=== PATIENT | female | born 1990 | race Caucasian/White ===

== ENCOUNTER 2018-04-06 13:09 | Emergency (ER) | payer MEDICAID, SELFPAY ==
--- NOTE | 2018-04-06 12:05 | EKG12_ITS ---
Test Reason : OPIOID ABUSE CP Blood Pressure : / mmHG Vent. Rate : 079 BPM Atrial Rate : 079 BPM P-R Int : 136 ms QRS Dur : 082 ms QT Int : 384 ms P-R-T Axes : 055 089 066 degrees QTc Int : 440 ms Normal sinus rhythm with sinus arrhythmia Nonspecific ST abnormality Abnormal ECG Confirmed by PREETI CHOE, VIMAL ([id number]), continuity editor BLAKE GUIDRY ([id number]) on 04/20/2018 11:26:27 AM Referred By: Magali Gage Confirmed By:VIMAL ÁLVAREZ MD
--- NOTE | 2018-04-06 13:09 | DT_ITS ---
This patient was seen during an EMR downtime April 03, 2018 - April 10, 2018. This patient may have a combination of paper and electronic documentation or all paper documentation. All documentation is viewable within the e-chart portion of [facility] for each patient visit.
--- NOTE | 2018-04-06 15:45 | RAD_ITS ---
STUDY: X-RAY CHEST REASON FOR EXAM: Female, 28 years old. Chest pain TECHNIQUE: Single AP portable view of the chest. COMPARISON: None. FINDINGS: Cardiac monitoring leads overlie the chest. The lungs are clear and expanded. There is no demonstrated pleural abnormality. Normal size heart. Normal mediastinum and adi. Normal visualized pulmonary arteries. Normal visualized aortic arch and descending thoracic aorta. Normal visualized thoracic spine. Normal visualized ribs, clavicles, and shoulders. There is no demonstrated abnormality of the visualized soft tissue structures of the upper abdomen. RAD/Chest 1 View (Portable) IMPRESSION: Normal x-ray examination of the chest. Please note that this study was performed on 04/06/2018, but only now placed in my queue for interpretation, explaining the delay in reporting. Electronically Signed: Yaniv Eller DO at 11:34 EDT Tel , Service support ,
[2018-04-09 13:45] LABS: Basophil% 0.6 % (0-1); Eosinophils% 3.2 % (0-5); Hematocrit 40.4 % (37-47); Hemoglobin 13.8 g/dl (12.0-15.0); Lymphocyte % 31.7 % (19-41); Mean Corp Hgb Conc 34.2 g/gl (32-36); Mean Corpuscular Volume 93.7 fL (81-99); Mean Platelet Vol. 10.6 fl (6.2-12.0); Monocyte% 6.9 % (0-10); Neutrophil % 57.6 % (47-70); POSITIVE COUNT NO; POSITIVE DIFFERENTIAL NO; POSITIVE MORPHOLOGY NO; Platelet Count 202 K/mm3 (150-450); RBC Distribution Width CV 12.6 % (11.6-14.6); RBC Distribution Width SD 43.5 fl (35.1-43.9); Red Blood Count 4.31 M/mm3 (4.2-5.4); White Blood Count 7.1 K/mm3 (4.4-11.0)
[2018-04-09 13:46] LABS: Absolute Lymphocyte Count 2.25 X10^3/ul (0.83-4.51); Absolute Neutrophil Count 4.1 X10^3/uL (2.0-7.7); Basophil# 0.04 X10^3/uL; Eosinophil# 0.23 X10^3/uL; Lymphocyte # 2.25 X10^3/ul (4.0); Monocyte# 0.49 X10^3/uL; Neutrophil # 4.09 X10^3/uL (2.7-7.7)
[2018-04-09 16:26] LABS: BUN 13 mg/dL (7-18); Glucose 88 mg/dL (74-106)
[2018-04-09 16:27] LABS: Anion Gap 9 (5-15); BUN/Creat Ratio 17.3 RATIO (10-20); Calcium,Total 8.3 mg/dL (8.5-10.1); Chloride 105 mmol/L (98-107); Creatinine, Serum 0.75 mg/dL (0.55-1.02); EST Glomerular Filtration Rate 97 mL/min (>60); Est Glom Filt Rate - Afr Amer 118 mL/min (>60); Sodium Level 140 mmol/L (136-145)
== END 2018-04-06 16:35 | disposition home or self-care (01) ==
LOC: ED 04-07 09:13
PROVIDERS: Emergency Provider Emergency Medicine; Family Provider Nurse Practitioner Family; PCP Nurse Practitioner Family
DX: R07.9 Chest pain, unspecified (principal)
CPT/HCPCS: 71045; 80048; 84484; 85025; 93005; 99283; A4216

== ENCOUNTER → 2018-04-06 14:34 | Outpatient (CLI) | payer MEDICAID, SELFPAY ==
--- NOTE | 2018-04-06 11:06 | EKG12_ITS ---
Test Reason : CP Blood Pressure : / mmHG Vent. Rate : 071 BPM Atrial Rate : 071 BPM P-R Int : 152 ms QRS Dur : 098 ms QT Int : 418 ms P-R-T Axes : 050 088 059 degrees QTc Int : 454 ms Normal sinus rhythm Normal ECG Confirmed by MADISON LAO MD ([id number]), mapping editor BLAKE GUIDRY ([id number]) on 04/12/2018 5:28:33 PM Referred By: Lisa DAVIDSON Confirmed By:MADISON LAO MD
--- NOTE | 2018-04-06 14:34 | DT_ITS ---
This patient was seen during an EMR downtime April 03, 2018 - April 10, 2018. This patient may have a combination of paper and electronic documentation or all paper documentation. All documentation is viewable within the e-chart portion of [facility] for each patient visit.
== END ==
PROVIDERS: Family Provider Nurse Practitioner Family; PCP Nurse Practitioner Family; Visit Provider Nurse Practitioner Family
DX: F11.19 Opioid abuse with unspecified opioid-induced disorder (principal)
CPT/HCPCS: 93005

== ENCOUNTER → 2018-05-24 13:50 | Outpatient (CLI) | payer MEDICAID, SELFPAY ==
--- NOTE | 2018-05-24 14:01 | ECHOD_ITS ---
Reason For Study: ABN EKG Procedure This was a 2D Doppler, Color Flow transthoracic echocardiogram. Exam performed in department. Left Ventricle Normal size and thickness. The estimated ejection fraction is 65 %. Stage 1 diastolic dysfunction. No regional wall motion abnormalities noted. Right Ventricle Normal size and thickness. Normal systolic function. Atria Normal left atrium. Normal right atrium. Normal atrial septum. Mitral Valve The mitral valve is structurally normal. No prolapse or stenosis seen. Trivial mitral valve insufficiency. Tricuspid Valve Normal tricuspid valve. Unable to estimate RV systolic pressure due to inadequate jet, pulmonary artery pressure probably normal. Aortic Valve Normal aortic valve. Trisinus/trileaflet aortic valve. Pulmonic Valve Normal pulmonic valve. Trivial pulmonic valve insufficiency. Great Vessels Normal aortic root. Normal arch. Normal inferior vena cava. Inferior vena cava collapse with sniff. Pericardium/Pleural No pericardial effusion. MMode/2D Measurements & Calculations LVIDd: 4.9 cm IVSd: 0.95 cm Ao root diam: 2.9 cm LVIDs: 3.1 cm LVPWd: 0.90 cm RVDd: 4.0 cm FS: 35.6 % LAV(MOD-bp): 52.0 ml LA A4 area: 17.5 cm2 RA A4 area: 12.6 cm2 LAV(MOD-bp) Indexed: 28.9 ml/m2 LAV(MOD-sp2): 53.6 ml LAV(MOD-sp4): 47.2 ml Time Measurements MV dec time: 0.26 sec Doppler Measurements & Calculations MV E max nikolas: 74.2 cm/sec Lat Peak E' Nikolas: 15.7 cm/sec Med Peak E' Nikolas: 12.8 cm/sec MV A max nikolas: 42.4 cm/sec E/E' lat: 4.7 E/E' med: 5.8 MV E/A: 1.7 Ao V2 max: 98.5 cm/sec LV V1 max: 86.0 cm/sec PA V2 max: 84.5 cm/sec Ao max P.9 mmHg LV V1 max P.0 mmHg TR max nikolas: 182.1 cm/sec TR max P.3 mmHg Interpretation Summary The estimated ejection fraction is 65 %. Stage 1 diastolic dysfunction. Trivial mitral valve insufficiency. Unable to estimate RV systolic pressure due to inadequate jet, pulmonary artery pressure probably normal. There is no comparison study available. Ordering Physician: KIRAN PENA Referring Physician: ARUNA WHITE Performed By: Machelle Kan RDCS, RVT
== END ==
PROVIDERS: Family Provider Nurse Practitioner Family; PCP Internal Medicine
DX: R94.31 Abnormal electrocardiogram [ECG] [EKG] (principal)
CPT/HCPCS: 93306

== ENCOUNTER → 2018-06-07 11:09 | Outpatient (CLI) | payer MEDICAID, SELFPAY ==
[2018-06-07 11:46] LABS: Color, Urine Yellow (Yellow); Glucose, Dipstick Normal (Normal); Ketone-Dipstick Negative (Negative); Leukocyte Esterase-Dipstick 100 /ul (Negative); Nitrite-Dipstick Negative (Negative); Occult Blood-Urine 10 /ul (Negative); Protein-Dipstick Negative (Negative); Urine Bilirubin Dipstick Negative (Negative); Urine Clarity Sl. Cloudy (Clear); Urine Urobilinogen Normal (Normal)
[2018-06-07 11:53] LABS: Bacteria 1+ /hpf (None Seen); Mucous, Urine RARE /hpf (<or=2+); Red Blood Cells-Urine 0-5 SEEN /hpf (0-5); Squamous Epithelial Cells - UA 0-5 SEEN /hpf (5-10); White Blood Cells 10-25 SEEN /hpf (0-5)
== END ==
PROVIDERS: Family Provider Nurse Practitioner Family; PCP Nurse Practitioner Family; Visit Provider Nurse Practitioner Family
DX: R30.0 Dysuria (principal)
CPT/HCPCS: 81001; 87086; 87088

== ENCOUNTER → 2018-06-20 12:07 | Outpatient (CLI) | payer MEDICAID, SELFPAY ==
[2018-06-21 11:32] LABS: HEPATITIS B SURFACE AG Negative (Negative)
[2018-06-21 14:01] LABS: HIV - WCH Non-Reactive (Nonreactive)
== END ==
PROVIDERS: Family Provider Nurse Practitioner Family; PCP Nurse Practitioner Family; Visit Provider Internal Medicine
DX: Z20.6 Contact with and (suspected) exposure to human immunodeficiency virus [HIV] (principal)
CPT/HCPCS: 36415; 86703; 87340

== ENCOUNTER 2021-01-21 19:36 | Inpatient (IN) | payer MEDICAID, SELFPAY ==
[2021-01-21 19:36] VITALS: BP 127/83; PULSE 103; RESP 16; TEMP 35.4; O2SAT 99; BMI 20.5
--- NOTE | 2021-01-21 20:43 | ED.VISSUMM ---
- ER Visit Summary Date of Service: 01/21/21 Chief Complaint: [Request for detox from heroin and fentanyl] History of Present Illness: The patient is a 30 F [presents to the emergency department asking to be admitted for detox. Patient states that she last used heroin around 5 PM. Patient's been using daily heroin and opiates and essentially other drugs including methamphetamines and marijuana for the last year and a half. Patient states that she feels restless and nauseated and has been vomiting. She denies recent illness. She denies cough or Covid symptoms. Patient has no medical history.] Physical Examination: [HEENT-PERRLA, EOMI. Cranial nerves II through XII grossly intact. TMs clear. Mucous membranes moist. No adenopathy. Cardiovascular-regular rate and rhythm without murmur or ectopy Lungs-clear to auscultation, chest wall stable without crepitus or subcu emphysema Abdomen-normoactive bowel sounds, soft, nontender, no rebound or rigidity, no peritoneal signs. Extremities-intact ?4, normal range of motion, normal pulses, atraumatic] Test Results: [CBC with differential was normal. test was negative. LFTs pending. Tox screen and alcohol pending.] Emergency Department Course and Treatment: [The line was established. Patient was given normal saline and was given Zofran 4 mg IV.] Treatment Plan: [Patient will be admitted for further management of her withdrawal symptoms.] Disposition: [Admit] Impression: [Opiate withdrawal Requesting detox from opiates] This note was generated with [employer] dictation software. It may contain incorrect words, spelling, and punctuation that were not noted in review of the chart prior to signing ED Disposition - Plan for ED Patient: Referrals: Jose Francisco Reyes NP, [facility]-C [Primary Care Provider] -
[2021-01-21 21:00] VITALS: BP 109/76; PULSE 80; RESP 16; TEMP 36.9; O2SAT 97
[2021-01-21 21:05] LABS: Absolute Lymphocyte Count 2.19 X10^3/uL (0.83-4.51); Absolute Neutrophil Count 4.3 X10^3/uL (2.0-7.7); Basophil# 0.05 X10^3/uL; Basophil% 0.7 % (0-1); Eosinophil# 0.18 X10^3/uL; Eosinophils% 2.5 % (0-5); Hemoglobin 14.5 g/dL (12.0-15.0); Lymphocyte # 2.19 X10^3/ul (4.0); Lymphocyte % 30.9 % (19-41); Mean Corp Hgb Conc 33.7 g/dL (32-36); Mean Corpuscular Hgb 31.6 pg (27.0-32.0); Mean Corpuscular Volume 93.7 fL (81-99); Mean Platelet Vol. 10.3 fl (6.2-12.0); Monocyte# 0.37 X10^3/uL; Monocyte% 5.2 % (0-10); NRBC Flagged by Analyzer 0 % (0-5); Neutrophil # 4.28 X10^3/uL (2.7-7.7); Neutrophil % 60.4 % (47-70); Platelet Count 303 K/mm3 (150-450); RBC Distribution Width SD 44.8 fl (35.1-43.9); Red Blood Count 4.59 M/mm3 (4.2-5.4); White Blood Count 7.1 K/mm3 (4.4-11.0)
[2021-01-21 21:09] LABS: Internal QC Validated? YES +Cl - CLEAR BKGD; Pregnancy, Serum, hCG Quali. NEGATIVE Negative
--- NOTE | 2021-01-21 21:10 | ED.RN ---
CALLED 180 TO ADVISE OF RAMP ADMIT
--- NOTE | 2021-01-21 21:18 | HP.PCM_ITS ---
Problem List (1) Polysubstance abuse Status: Chronic (2) Tobacco abuse Status: Chronic (3) Depression Status: Chronic (4) Bipolar 2 disorder Status: Chronic (5) PTSD (post-traumatic stress disorder) Status: Chronic (6) Desire for detoxification Status: Acute History of Present Illness Date of Admission: 01/21/21 Chief Complaint: Desire for detoxification from fentanyl and heroin The patient is a 30 year old F resents today for detoxification from heroin and opiates. Patient also reports that she occasionally uses methamphetamines and marijuana. Patient has went through detoxification and reports that she was sober for 2 years and began using again approximately 1 year ago. Patient has history of anxiety, depression, and PTSD. She also reports difficulty sleeping. She has not currently taking anything for her depression, PTSD, anxiety. Patient reports she has felt restless, nauseated and has been vomiting today. Patient denies other symptoms. Patient reports following detox she plans to move back in with her mother for a more stable and supportive environment. Patient previously had been living by herself and feels that the isolation of the pandemic has contributed to her relapse. Patient reports that she typically uses heroin up to 4 g/day and is a 1 pack/day smoker, occasionally smokes marijuana. Past Medical History Past Medical History (Chronic Problems): Chronic Problems (Last Reviewed 06/28/18 @ 13:39 by Leslie Zavala) Tobacco abuse (Chronic) Polysubstance abuse (Chronic) Depression (Chronic) Bipolar 2 disorder (Chronic) PTSD (post-traumatic stress disorder) (Chronic) Hearing problem (Chronic) H/O emotional problems (Chronic) Drug abuse (Chronic) Seasonal allergies (Chronic) Alcohol abuse (Chronic) Abnormal bruising (Chronic) Migraines (Chronic) SOB (shortness of breath) (Chronic) Medical History: Medical History (Last Reviewed 01/21/21 @ 21:24 by Jacqueline Espinoza, SENIOR FIREWALL ENGINEER-C) Hearing problem (Chronic) H91.90 H/O emotional problems (Chronic) F48.9 Drug abuse (Chronic) F19.10 Seasonal allergies (Chronic) J30.2 Alcohol abuse (Chronic) F10.10 Abnormal bruising (Chronic) R23.8 Migraines (Chronic) G43.909 SOB (shortness of breath) (Chronic) R06.02 Loss of consciousness (Acute) R40.20 Allergies sulfate Allergy (Intermediate, Uncoded 01/21/21 19:38) Rash Home Medications: Ambulatory Orders Medication Instructions Recorded loratadine 10 mg tablet 10 mg PO QDAY 04/28/18 cerufnbx-wpyt-sez-folic acid 18 1 tab PO QDAY #90 tab 05/17/18 mg-0.4 mg tablet multivitamin with minerals 1 tab PO QDAY #90 tab 05/17/18 levonorgestrel-ethinyl estradiol 1 tab PO QDAY 06/06/18 0.1 mg-20 mcg tablet risperidone 1 mg tablet 1 mg PO QDAY 06/06/18 amoxicillin 875 mg tablet 875 mg PO BID 06/28/18 prednisone 20 mg tablet 40 mg PO DAILY #10 tab 06/28/18 sulfamethoxazole 800 1 tab PO Q12H #14 tab 06/28/18 mg-trimethoprim 160 mg tablet Surgical History: Surgical History (Last Reviewed 01/21/21 @ 21:24 by Jacqueline Espinoza, SENIOR FIREWALL ENGINEER-C) History of tubal ligation Z98.51 Hx of section Z98.891 Surgical History: - - section x2, tubal ligation Psychiatric History: Anxiety, Bipolar, Depression, Post traumatic stress 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 Denies: Chills, Fever HEENT: Denies: Head Aches, Sinus Congestion, Sinus Drainage Cardiovascular: Denies: Chest Pain, Palpitations Respiratory: Denies: Cough, Shortness of breath at rest, Sputum production Gastrointestinal: Denies: Abdominal Pain, Nausea, Vomiting Genitourinary: Denies: Dysuria Musculoskeletal: Denies: Joint Pain, Joint Tenderness Skin: Reports: - - Multiple bruises, scabbed areas. Denies: Rash, Wounds Neurological: Denies: Numbness, Tingling, Focal weakness Psychiatric: Reports: Anxiety, Depression. Denies: Homicidal Ideations, Suicidal Ideations Hematologic/ Lymphatic: Denies: Easy Bruising, Easy Bleeding VTE Information - Inpt Only VTE Present on Admission: No VTE Mechan Device Prophylaxis: None Patient Problems: Active and Suspected Problems (Last Reviewed 06/28/18 @ 13:39 by Leslie Zavala) Desire for detoxification (Acute) - Physical Exam Vitals/I&O's: Vital Signs Temp Pulse Resp BP Pulse Ox 95.8 F L 103 H 16 127/83 H 99 01/21/21 19:36 01/21/21 19:36 01/21/21 19:36 01/21/21 19:36 01/21/21 19:36 Oxygen Delivery Method Room Air Weight: 115 lb 15.41 oz Body Mass Index (BMI) 20.5 General: Alert, Oriented x3, Cooperative HEENT: Atraumatic, PERRLA, EOMI, Normocephalic Neck: Supple, No JVD, Negative Carotid Bruits Lungs: Clear to auscultation, Normal air movement Cardiovascular: Regular rate, Regular Rhythm, Normal S1, Normal S2, No murmurs Abdomen: Bowel Sounds Present, Soft, Non Tender Extremities: No edema, Capillary Refill Less than 3 Seconds Skin: No rashes, No breakdown Musculoskeletal: No Tenderness to Palpation of Joints or Extremities Neurological: Cranial nerves II-XII grossly intact Psych/Mental Status: Normal Affect, Anxious, Restless Laboratory Results 01/21/21 20:35: WBC 7.1, RBC 4.59, Hgb 14.5, Hct 43.0, MCV 93.7, MCH 31.6, MCHC 33.7, RDW Std Deviation 44.8 H, RDW Coeff of Moira 13.0, Plt Count 303, MPV 10.3, Immature Gran % (Auto) 0.300, Neut % (Auto) 60.4, Lymph % (Auto) 30.9, [place] % (Auto) 5.2, Eos % (Auto) 2.5, Baso % (Auto) 0.7, Absolute Neuts (auto) 4.3, Absolute Lymphs (auto) 2.19, Nucleated RBC % 0 01/21/21 20:35: Sodium Pending, Potassium Pending, Chloride Pending, Carbon Dioxide Pending, Anion Gap Pending, BUN Pending, Creatinine Pending, Est GFR (MDRD) Af Amer Pending, Est GFR (MDRD) Non-Af Pending, BUN/Creatinine Ratio Pending, Glucose Pending, Calcium Pending, Total Bilirubin Pending, AST Pending, ALT Pending, Alkaline Phosphatase Pending, Total Protein Pending, Albumin Pending 01/21/21 20:35: Serum , Qual NEGATIVE 01/21/21 21:00: Ethyl Alcohol Pending Current Medications Sodium Chloride () 1,000 mls @ 150 mls/hr IV .Q6H40M [facility] Assessment/Plan All Active Problems (Last Reviewed 06/28/18 @ 13:39 by Leslie Zavala) Desire for detoxification (Acute) Dermatitis (Acute) Cellulitis (Acute) Corneal abrasion, right (Acute) Acute bacterial conjunctivitis (Acute) Loss of consciousness (Acute) 1. Polysubstance abuse-desire for detoxification -Buprenorphine taper ordered per protocol -Supportive meds also ordered for symptom management for withdrawals -Patient will be admitted to [facility] as part of RAMP program 2. Bipolar 2 disorder -Not currently on prescription medication -180 consulted 3. PTSD -See #2 4. Depression -See#2 5. Tobacco abuse -NicoDerm transdermal patch ordered daily DVT prophylaxis-not indicated This patient was seen by YASEMIN Fall under the supervision of Dr. Leavitt
[2021-01-21 21:21] LABS: AST(SGOT) 16 U/L (15-37); Alanine Aminotransfer ALT/SGPT 22 U/L (13-56); Albumin, Serum 3.8 g/dL (3.2-5.0); Alkaline Phosphatase 92 U/L (45-117); Anion Gap 6 (5-15); BUN 10 mg/dL (7-18); BUN/Creat Ratio 11.5 RATIO (10-20); Calcium,Total 9.1 mg/dL (8.5-10.1); Chloride 102 mmol/L (98-107); Creatinine, Serum 0.87 mg/dL (0.55-1.02); EST Glomerular Filtration Rate 81 mL/min (>60); Est Glom Filt Rate - Afr Amer 98 mL/min (>60); Globulin 3.7 g/dL (2.2-4.2); Glucose 96 mg/dL (74-106); Potassium 3.7 mmol/L (3.5-5.1); Protein, Total 7.5 g/dL (6.4-8.2); Sodium Level 139 mmol/L (136-145)
[2021-01-21] MEDS: Ondansetron 4 MG/2 ML Vial IV (21:47)
[2021-01-21] MEDS: 0.9% Normal Saline 1,000 ML 150 ML IV (21:47)
[2021-01-21 22:18] VITALS: BMI 21.2
[2021-01-21 22:28] VITALS: BP 106/64; PULSE 86; RESP 18; TEMP 36.7; O2SAT 100
[2021-01-21 22:36] LABS: Amphetamine Urine VISTA NEGATIVE (<1000 ng/mL); Barbiturate Urine VISTA NEGATIVE (< 200 ng/mL); Benzodiazepine Urine VISTA NEGATIVE (< 200 ng/mL); Cocaine Urine VISTA NEGATIVE (< 300 ng/mL); Ecstacy Urine VISTA NEGATIVE (< 500 ng/mL); Methadone Urine VISTA NEGATIVE (< 300 ng/mL); PCP Urine VISTA NEGATIVE (< 25 ng/mL); THC Urine VISTA POSITIVE (< 50 ng/mL); Vista UDS pH Range 7
[2021-01-21] MEDS: Lactated Ringers 1,000 ML 125 ML IV (22:47)
[2021-01-21 23:08] VITALS: BMI 21.3
[2021-01-21 23:09] LABS: HIV - WCH Non-Reactive (Nonreactive)
[2021-01-21] MEDS: Ibuprofen 600 MG Tablet PO (23:43)
[2021-01-21] MEDS: hydrOXYzine PAM 25 MG Capsule 50 MG PO (23:43)
[2021-01-21] MEDS: Buprenorphine HCl 2 MG TAB.SUBL SL (23:43)
[2021-01-21] MEDS: traZODone 100 MG Tablet PO (23:43)
[2021-01-21] MEDS: Dicyclomine 10 MG Capsule 20 MG PO (23:44)
[2021-01-22 04:21] LABS: Color, Urine Yellow (Yellow); Glucose, Dipstick Normal (Normal); Ketone-Dipstick Negative (Negative); Leukocyte Esterase-Dipstick 100 /ul (Negative); Mucous, Urine 0 SEEN /hpf (<or=2+); Nitrite-Dipstick Positive (Negative); Occult Blood-Urine Negative /ul (Negative); Protein-Dipstick 15 mg/dl (Negative); Urine Bilirubin Dipstick Negative (Negative); Urine Urobilinogen Normal (Normal)
[2021-01-22 04:34] LABS: Bacteria 3+ /hpf (None Seen)
[2021-01-22 04:43] LABS: White Blood Cells 50-100 SEEN /hpf (0-5)
[2021-01-22 04:44] LABS: Amorphous Sediment 2+
[2021-01-22 04:45] LABS: Red Blood Cells-Urine 0-5 SEEN /hpf (0-5); Squamous Epithelial Cells - UA 0-5 SEEN /hpf (5-10)
[2021-01-22 04:46] LABS: Urine Clarity Cloudy (Clear)
[2021-01-22] MEDS: Buprenorphine HCl 2 MG TAB.SUBL SL ×3 (06:38→23:28)
[2021-01-22 06:39] VITALS: BP 110/59; PULSE 74; RESP 16; TEMP 36.4; O2SAT 98
[2021-01-22] MEDS: 0.9% Saline Lock 10 ML Syringe IV (07:07)
[2021-01-22] MEDS: Ceftriaxone 1 GM/50 ML BAG IV (07:07)
[2021-01-22 07:40] VITALS: O2SAT 93
--- NOTE | 2021-01-22 09:08 | ADDICTION ---
This creative services writer met with PT to complete ASAM, MSE, DUDIT assessments and to plan for d/c. PT A+Ox4 and presented with euthymic mood. All assessments completed, faxed to [facility] and placed in PT's chart. PT plans to f/u with [facility] post d/c from [facility] and was provided with available assessment times for the remainder of this week and next week.
[2021-01-22 10:30] VITALS: BP 112/68; PULSE 70; RESP 16; TEMP 36.6; O2SAT 97
[2021-01-22] MEDS: hydrOXYzine PAM 25 MG Capsule 50 MG PO (10:50)
--- NOTE | 2021-01-22 10:55 | PCM.PN.HOSP ---
Patient Problems: Active and Suspected Problems (Last Reviewed 01/21/21 @ 21:24 by Jacqueline Espinoza, PRODUCTION STATISTICAL CLERK-C) Desire for detoxification (Acute) Subjective: Patient states she is overall feeling better. She does complain of some mild nausea but no further emesis since admission and indicates the Zofran is helpful. She also complains of some mild tremor. She does state that the Suboxone seems to be helping with her withdrawal symptoms though. Vitals/I&O's: Vital Signs Temp Pulse Resp BP Pulse Ox 97.6 F L 74 16 110/59 L 93 01/22/21 06:39 01/22/21 06:39 01/22/21 06:39 01/22/21 06:39 01/22/21 07:40 Oxygen Delivery Method Room Air Weight: 54.5 kg Body Mass Index (BMI) 21.2 Intake and Output for Last 24 Hours 01/20/21 01/21/21 01/22/21 23:59 23:59 23:59 Intake Total 145 / 145 1554.92 / 1554.92 Balance 145 / 145 1554.92 / 1554.92 General: Alert, Oriented x3, Cooperative, No apparent distress, Well developed, Well nourished, - - Young white female sitting up in bed watching television and getting ready to eat breakfast, nontoxic, appears comfortable HEENT: Atraumatic, PERRLA, EOMI, Normocephalic, EAC Clear Oral: Moist Mucosa Neck: Supple, Trachea Midline Lungs: Clear to auscultation, Normal air movement, No rhonchi, No wheeze, No rales Cardiovascular: Regular rate, Regular Rhythm, Normal S1, Normal S2, No murmurs, No Ectopic Activity, No rub noted, No Gallop Abdomen: Bowel Sounds Present, Soft, Non Tender, Non-Distended Extremities: No clubbing, No cyanosis, No edema, Capillary Refill Less than 3 Seconds, Peripheral Pulses Normal Neurological: Cranial nerves II-XII grossly intact, Neuro grossly intact Psych/Mental Status: Appropriate, Flat Affect Laboratory Results 01/21/21 20:35: WBC 7.1, RBC 4.59, Hgb 14.5, Hct 43.0, MCV 93.7, MCH 31.6, MCHC 33.7, RDW Std Deviation 44.8 H, RDW Coeff of Moira 13.0, Plt Count 303, MPV 10.3, Immature Gran % (Auto) 0.300, Neut % (Auto) 60.4, Lymph % (Auto) 30.9, [place] % (Auto) 5.2, Eos % (Auto) 2.5, Baso % (Auto) 0.7, Absolute Neuts (auto) 4.3, Absolute Lymphs (auto) 2.19, Nucleated RBC % 0 01/21/21 20:35: Sodium 139, Potassium 3.7, Chloride 102, Carbon Dioxide 31.0, Anion Gap 6, BUN 10, Creatinine 0.87, Estim Creat Clear Calc 77.50, Est GFR (MDRD) Af Amer 98, Est GFR (MDRD) Non-Af 81, BUN/Creatinine Ratio 11.5, Glucose 96, Calcium 9.1, Total Bilirubin 0.30, AST 16, ALT 22, Alkaline Phosphatase 92, Total Protein 7.5, Albumin 3.8, Globulin 3.7, Albumin/Globulin Ratio 1.0 01/21/21 20:35: Serum , Qual NEGATIVE 01/21/21 20:35: Hepatitis A IgM Ab Pending, Hepatitis A Ab Total Pending, Hep Bs Antigen Pending, Hep B Core Total Ab Pending, Hep B Core IgM Ab Pending 01/21/21 20:35: HIV 1&2 Antibody Non-Reactive 01/21/21 21:00: Ethyl Alcohol 12.0 01/21/21 21:51: Urine Opiates Screen NEGATIVE, Urine Methadone Screen NEGATIVE, Ur Barbiturates Screen NEGATIVE, Ur Phencyclidine Scrn NEGATIVE, Ur Amphetamines Screen NEGATIVE, U Methamphetamin-MDMA NEGATIVE, U Benzodiazepines Scrn NEGATIVE, Urine Cocaine Screen NEGATIVE, U Cannabinoids Screen POSITIVE H, Ur Drug Screen Comment 01/22/21 04:06: Urine Color Yellow, Urine Clarity Cloudy, Urine pH 8.0, Ur Specific [place] 1.010, Urine Protein 15 H, Urine Glucose (UA) Normal, Urine Ketones Negative, Urine Occult Blood Negative, Urine Nitrite Positive H, Urine Bilirubin Negative, Urine Urobilinogen Normal, Ur Leukocyte Esterase 100 H, Urine RBC 0-5 SEEN, Urine WBC 50-100 SEEN, Ur Squamous Epith Cells 0-5 SEEN, Amorphous Sediment 2+, Urine Bacteria 3+, Urine Mucus 0 SEEN Current Medications Acetaminophen (Acetaminophen 500 Mg Tablet) 500 mg PO Q4H PRN PRN PRN Reason: Temp > 100.4 F Al Hydroxide/Mg Hydroxide (Mag Hydrox/Al Hydrox/Simeth 30 Ml Udc) 30 ml PO Q6H PRN PRN PRN Reason: dyspesia Albuterol Sulfate (Albuterol 2.5 Mg/3 Ml Vial.Neb.) 2.5 mg INHALATION Q2H PRN PRN PRN Reason: Dyspnea, wheezing Bisacodyl (Bisacodyl 10 Mg Suppository) 10 mg RC DAILY PRN PRN Reason: Constipation Buprenorphine HCl (Buprenorphine Hcl 2 Mg Tab.Subl) 4 mg SL Q8H JI; Taper Stop: 01/24/21 23:29 Last Admin: 01/22/21 06:38 Dose: 4 mg Documented by: Clonidine (Clonidine Hcl 0.1 Mg Tablet) 0.1 mg PO Q8H PRN PRN PRN Reason: RESTLESSNESS Dicyclomine HCl (Dicyclomine 10 Mg Capsule) 20 mg PO Q6H PRN PRN PRN Reason: Abdominal Discomfort Last Admin: 01/21/21 23:44 Dose: 20 mg Documented by: Gabapentin (Gabapentin 300 Mg Capsule) 300 mg PO Q8H PRN PRN PRN Reason: moderate to severe anxiety Hydroxyzine Pamoate (Hydroxyzine Melissa 25 Mg Capsule) 50 mg PO Q6H PRN PRN PRN Reason: mild anxiety Last Admin: 01/22/21 10:50 Dose: 50 mg Documented by: Sodium Chloride () 250 mls @ 15 mls/hr IV .[id number] PRN PRN Reason: Saline Flush Last Infusion: 01/22/21 08:01 Dose: 0 mls/hr Documented by: Sodium Chloride () 250 mls @ 15 mls/hr IV .[id number] PRN PRN Reason: Additional IVPB Infusion Ceftriaxone Sodium (Rocephin) 1 gm in 50 mls @ 100 mls/hr IV Q24 JI Last Infusion: 01/22/21 07:37 Dose: Infused Documented by: Ibuprofen (Ibuprofen 600 Mg Tablet) 600 mg PO Q8H PRN PRN PRN Reason: PAIN Last Admin: 01/21/21 23:43 Dose: 600 mg Documented by: Loperamide HCl (Loperamide 2 Mg Capsule) 2 mg PO Q4H PRN PRN PRN Reason: LOOSE STOOLS Methocarbamol (Methocarbamol 750 Mg Tablet) 1,500 mg PO Q6H PRN PRN PRN Reason: MUSCLE SPASM Nicotine (Nicotine 21 Mg Patch) 21 mg TD DAILY [facility] Last Admin: 01/22/21 10:34 Dose: 21 mg Documented by: Nutritional Formula (Lactose Free) (Ensure Enlive 120 Ml Liquid) 120 ml PO 4X/DAY JI Last Admin: 01/22/21 10:49 Dose: 120 ml Documented by: Ondansetron HCl (Ondansetron 8 Mg Tablet) 8 mg PO Q8H PRN PRN PRN Reason: NAUSEA Senna (Senna Tablet) 2 tablet PO QHS PRN PRN Reason: Constipation Sodium Chloride (0.9% Saline Lock 10 Ml Syringe) 10 - 40 ml IV UD PRN PRN Reason: SALINE FLUSH Last Admin: 01/22/21 07:07 Dose: 10 ml Documented by: Trazodone HCl (Trazodone 100 Mg Tablet) 100 mg PO QHS PRN PRN PRN Reason: INSOMNIA Last Admin: 01/21/21 23:43 Dose: 100 mg Documented by: STROKE Vital Signs/Narrative: Vital Signs Pulse Ox 01/22/21 07:40 93 Medical Necessity - Tobacco Use Smoking Status: Current every day smoker Tobacco Use: Cigarettes Assessment/Plan All Active Problems (Last Reviewed 01/21/21 @ 21:24 by Jacqueline Espinoza PRODUCTION STATISTICAL CLERK-C) Desire for detoxification (Acute) Dermatitis (Acute) Cellulitis (Acute) Corneal abrasion, right (Acute) Acute bacterial conjunctivitis (Acute) Loss of consciousness (Acute) Acute opiate withdrawal -Patient had been reportedly clean for 2 years and relapsed approximately a year ago initially with Percocet and then progressed to fentanyl and heroin in July 2020 -continue Suboxone taper -Continue supportive medications -Patient indicates she is never used IV drugs -180 consultation -Tox screen was only positive for THC -Hepatitis studies are pending Suspected urinary tract infection -UA is suggestive of UTI -Culture pending -Empiric ceftriaxone 1 g daily until cultures received and adjust or discontinue as indicated Polysubstance abuse -Patient has history of prior alcohol abuse-currently sober 2017 -Hepatitis status pending -HIV was nonreactive Tobacco abuse -Recommend cessation -Currently using 1 pack/day -Nicotine patch is available Bipolar disorder -Untreated at the present time -Patient is interested in restarting medications and counseling DVT prophylaxis -Early ambulation -Low risk Status -Full code Inpatient E&M: 18922 Subs Hosp L2
--- NOTE | 2021-01-22 12:20 | PCM.NTREPORT ---
Nutrition Therapy Report - History Nutrition Services has been consulted to:: Manage nutrient details of diet order Current diet / nutrition support order:: regular; ensure enlive 120mL 4x/day - Anthropometric Measurements Height:: 5 ft 3 in Weight:: 54.5 kg Body Mass Index (BMI):: 21.2 - Relevant Labs Relevant Labs:: RDW Std Deviation 44.8 fl (35.1-43.9) H 01/21/21 20:35 - Assessment Food / Nutrition-Related History:: Pt reports poor PO intake over past 1 year d/t drug abuse. States when did eat, she would want to throw-up immediately. Has been tolerating PO diet w/ nausea medications since admission. Wt in April 2020 ~180#. CBW 120.2#-59.8#/33% wt loss <1 year, significant for - Nutrition Diagnosis Problem / Etiology / Signs & Symptoms (PES):: severe malnutrition in context of environmental/behavioral circumstances, specifically r/t decreased energy intake d/t drug abuse as evidenced by estimated PO intake meeting <75% of pts nutritional needs x 6 months, wt loss of 59.8#/33% since April 2020. Evidence of Malnutrition Exists:: Yes Severe PCM:: Social & Environmental circumstances - Nutrition Intervention Nutrition Prescription:: [id number] calories/day (RMRx1.3). 54-64 g protein/day (1 g/kg). 2180mL fluid/day (40mL/kg) - Food / Nutrient Delivery Interventions Summary of nutrition intervention:: Pt agreeable to Ensure Enlive as ordered. Asking for additional apple juice at time of assessment, provided by RDN for pt. Discussed outpatient counseling pt plans to seek after d/c. Pt worried she may have developed a mental adversion to food and plans to discuss this in therapy. Nutrition support ordered as / adjusted to:: continue regular diet; 120mL ensure enlive 4x/day Nutrition education provided?: Yes - MNT Monitoring Further MNT monitoring and evaluation required?: Yes MNT Follow-up in:: 3-5 days
[2021-01-22 12:31] VITALS: BMI 21.2
[2021-01-22 14:30] VITALS: BP 122/68; PULSE 74; RESP 16; TEMP 36.7; O2SAT 98
[2021-01-22] MEDS: Dicyclomine 10 MG Capsule 20 MG PO (14:52)
--- NOTE | 2021-01-22 14:56 | CASEMGMT ---
RIANNA received a call from Hodan with [facility]. She was able to get patient into the Viv[facility] group on Tuesday01-26-21 at 10am. She said if she doesn't get into that group it could be another 2 weeks. She asked RIANNA to pass this along to patient. RIANNA met with patient, introduced self and role at [facility]. SW gave her the message from Hodan. RIANNA also wrote down this information and gave it to her. Jaqueline HIGGINBOTHAM
[2021-01-22] MEDS: Gabapentin 300 MG Capsule PO (17:06)
[2021-01-22] MEDS: Senna Tablet 2 TABLET PO (17:06)
[2021-01-22 20:30] VITALS: BP 108/72; PULSE 90; RESP 16; TEMP 36.7; O2SAT 96
[2021-01-22] MEDS: traZODone 100 MG Tablet PO (21:51)
[2021-01-23] VITALS (7 sets, daily range): BP systolic 98–112; BP diastolic 58–71; PULSE 75–94; RESP 14–17; TEMP 36.4–36.6; O2SAT 96–100
[2021-01-23] MEDS: Buprenorphine HCl 2 MG TAB.SUBL SL ×3 (06:32→23:15)
[2021-01-23 07:07] LABS: HEPATITIS B SURFACE AG Negative (Negative); Hepatitis A AB, Total Negative (Negative); Hepatitis A IgM Antibody Negative (Negative); Hepatitis B Core AB IgM Negative (Negative); Hepatitis B Core Ab Total Negative (Negative); Hepatitis C Ab <0.1 s/co ratio (0.0-0.9)
[2021-01-23] MEDS: Ceftriaxone 1 GM/50 ML BAG IV (09:14)
--- NOTE | 2021-01-23 11:02 | PCM.PN.HOSP ---
Patient Problems: Active and Suspected Problems (Last Reviewed 01/21/21 @ 21:24 by Jaqcueline Espinoza, STACKER OPERATOR-C) Desire for detoxification (Acute) Subjective: Patient states she has had a little bit of nausea but overall is feeling better. She confirms that she intends to follow-up with the Vivitrol group on Tuesday and is aware that if she does not get in with that group it could be another 2 weeks till she can be seen. I discussed with her a plan for discharge on Tuesday a.m. after she has completed her Suboxone taper late on Tuesday evening and she is agreeable to this. Vitals/I&O's: Vital Signs Temp Pulse Resp BP Pulse Ox 97.7 F L 94 16 108/63 99 01/23/21 09:20 01/23/21 09:20 01/23/21 09:20 01/23/21 09:20 01/23/21 09:20 Oxygen Delivery Method Room Air Weight: 54.5 kg Body Mass Index (BMI) 21.2 Intake and Output for Last 24 Hours 01/21/21 01/22/21 01/23/21 23:59 23:59 23:59 Intake Total 145 / 145 1554.92 / 1674.92 120 / 120 Balance 145 / 145 1554.92 / 1674.92 120 / 120 General: Alert, Oriented x3, Cooperative, No apparent distress, Well developed, Well nourished, - - Young white female lying in left side lying in bed, nontoxic-appearing, appears comfortable HEENT: Atraumatic, Normocephalic Oral: Moist Mucosa Neck: Supple, Trachea Midline Lungs: Clear to auscultation, Normal air movement, No rhonchi, No wheeze, No rales Cardiovascular: Regular rate, Regular Rhythm, Normal S1, Normal S2, No murmurs, No Ectopic Activity, No rub noted, No Gallop Abdomen: Bowel Sounds Present, Soft, Non Tender, Non-Distended Extremities: No clubbing, No cyanosis, No edema, Capillary Refill Less than 3 Seconds, Peripheral Pulses Normal Psych/Mental Status: Normal Affect, Appropriate, - - Pleasant Current Medications Acetaminophen (Acetaminophen 500 Mg Tablet) 500 mg PO Q4H PRN PRN PRN Reason: Temp > 100.4 F Al Hydroxide/Mg Hydroxide (Mag Hydrox/Al Hydrox/Simeth 30 Ml Udc) 30 ml PO Q6H PRN PRN PRN Reason: dyspesia Albuterol Sulfate (Albuterol 2.5 Mg/3 Ml Vial.Neb.) 2.5 mg INHALATION Q2H PRN PRN PRN Reason: Dyspnea, wheezing Bisacodyl (Bisacodyl 10 Mg Suppository) 10 mg RC DAILY PRN PRN Reason: Constipation Buprenorphine HCl (Buprenorphine Hcl 2 Mg Tab.Subl) 2 mg SL Q8H JI; Taper Stop: 01/24/21 23:29 Last Admin: 01/23/21 06:32 Dose: 2 mg Documented by: Clonidine (Clonidine Hcl 0.1 Mg Tablet) 0.1 mg PO Q8H PRN PRN PRN Reason: RESTLESSNESS Dicyclomine HCl (Dicyclomine 10 Mg Capsule) 20 mg PO Q6H PRN PRN PRN Reason: Abdominal Discomfort Last Admin: 01/22/21 14:52 Dose: 20 mg Documented by: Gabapentin (Gabapentin 300 Mg Capsule) 300 mg PO Q8H PRN PRN PRN Reason: moderate to severe anxiety Last Admin: 01/22/21 17:06 Dose: 300 mg Documented by: Hydroxyzine Pamoate (Hydroxyzine Melissa 25 Mg Capsule) 50 mg PO Q6H PRN PRN PRN Reason: mild anxiety Last Admin: 01/22/21 10:50 Dose: 50 mg Documented by: Sodium Chloride () 250 mls @ 15 mls/hr IV .[id number] PRN PRN Reason: Saline Flush Last Infusion: 01/22/21 08:01 Dose: 0 mls/hr Documented by: Sodium Chloride () 250 mls @ 15 mls/hr IV .[id number] PRN PRN Reason: Additional IVPB Infusion Ceftriaxone Sodium (Rocephin) 1 gm in 50 mls @ 100 mls/hr IV Q24 JI Last Admin: 01/23/21 09:14 Dose: 100 mls/hr Documented by: Ibuprofen (Ibuprofen 600 Mg Tablet) 600 mg PO Q8H PRN PRN PRN Reason: PAIN Last Admin: 01/21/21 23:43 Dose: 600 mg Documented by: Loperamide HCl (Loperamide 2 Mg Capsule) 2 mg PO Q4H PRN PRN PRN Reason: LOOSE STOOLS Methocarbamol (Methocarbamol 750 Mg Tablet) 1,500 mg PO Q6H PRN PRN PRN Reason: MUSCLE SPASM Nicotine (Nicotine 21 Mg Patch) 21 mg TD DAILY JI Last Admin: 01/23/21 09:08 Dose: 21 mg Documented by: Nutritional Formula (Lactose Free) (Ensure Enlive 120 Ml Liquid) 120 ml PO 4X/DAY JI Last Admin: 01/23/21 09:15 Dose: 120 ml Documented by: Ondansetron HCl (Ondansetron 8 Mg Tablet) 8 mg PO Q8H PRN PRN PRN Reason: NAUSEA Senna (Senna Tablet) 2 tablet PO QHS PRN PRN Reason: Constipation Last Admin: 01/22/21 17:06 Dose: 2 tablet Documented by: Sodium Chloride (0.9% Saline Lock 10 Ml Syringe) 10 - 40 ml IV UD PRN PRN Reason: SALINE FLUSH Last Admin: 01/22/21 07:07 Dose: 10 ml Documented by: Trazodone HCl (Trazodone 100 Mg Tablet) 100 mg PO QHS PRN PRN PRN Reason: INSOMNIA Last Admin: 01/22/21 21:51 Dose: 100 mg Documented by: STROKE Vital Signs/Narrative: Vital Signs Temp Pulse Resp BP Pulse Ox 01/23/21 09:20 97.7 F L 94 16 108/63 99 01/23/21 07:06 96 Medical Necessity - Tobacco Use Smoking Status: Current every day smoker Tobacco Use: Cigarettes Assessment/Plan All Active Problems (Last Reviewed 01/21/21 @ 21:24 by Jacqueline Espinoza, STACKER OPERATOR-C) Desire for detoxification (Acute) Dermatitis (Acute) Cellulitis (Acute) Corneal abrasion, right (Acute) Acute bacterial conjunctivitis (Acute) Loss of consciousness (Acute) Acute opiate withdrawal -Patient had been reportedly clean for 2 years and relapsed approximately a year ago initially with Percocet and then progressed to fentanyl and heroin in July 2020 -continue Suboxone taper--> currently on 2 mg every 8 hours with the taper scheduled to finish on 01/24/2021 at 2329 -Per documentation from 180 patient is going to follow-up the [facility] on 01/26/2021 at 10 AM -Plan to discharge the patient on Tuesday a.m. after her Suboxone taper is completed -Continue supportive medications -Patient indicates she is never used IV drugs -Tox screen was only positive for THC -Hepatitis studies remain -Add on hepatitis C antibody Suspected urinary tract infection -UA is suggestive of UTI -Culture jessenia pending -Continue empiric ceftriaxone 1 g daily until cultures received and adjust or discontinue as indicated Polysubstance abuse -Patient has history of prior alcohol abuse-currently sober 2017 -Hepatitis studies remain pending -HIV was nonreactive Tobacco abuse -Recommend cessation -Currently using 1 pack/day -Nicotine patch is available Bipolar disorder -Untreated at the present time -Patient is interested in restarting medications and counseling DVT prophylaxis -Early ambulation -Low risk Status -Full code Inpatient E&M: 67217 Subs Hosp L2
[2021-01-23 12:17] LABS: Hep B Surface Antibodies Reactive (.)
[2021-01-23 15:06] LABS: Hepatitis C Antibody Non-Reactive (Nonreactive)
[2021-01-23] MEDS: traZODone 100 MG Tablet PO (23:20)
[2021-01-24 06:01] VITALS: BP 95/40; PULSE 73; RESP 16; TEMP 36.4; O2SAT 100
[2021-01-24 08:10] VITALS: O2SAT 100
[2021-01-24 10:03] VITALS: BP 103/62; PULSE 69; RESP 14; TEMP 36.6; O2SAT 100
[2021-01-24] MEDS: 0.9% Saline Lock 10 ML Syringe IV (10:06)
[2021-01-24] MEDS: Ceftriaxone 1 GM/50 ML BAG IV (10:06)
[2021-01-24] MEDS: Buprenorphine HCl 2 MG TAB.SUBL SL (10:19)
[2021-01-24] MEDS: Senna Tablet 2 TABLET PO (10:25)
--- NOTE | 2021-01-24 10:42 | PCM.PN.HOSP ---
Patient Problems: Active and Suspected Problems (Last Reviewed 01/21/21 @ 21:24 by Jacqueline Espinoza, EXCEL SPECIALIST-C) Desire for detoxification (Acute) Subjective: Patient states she is feeling well today. No acute complaints other than that she is very tired. States she has intake at 915 on Tuesday morning for her Vivitrol meeting. Vitals/I&O's: Vital Signs Temp Pulse Resp BP Pulse Ox 97.8 F 69 14 103/62 100 01/24/21 10:03 01/24/21 10:03 01/24/21 10:03 01/24/21 10:03 01/24/21 10:03 Oxygen Delivery Method Room Air Weight: 54.5 kg Body Mass Index (BMI) 21.2 Intake and Output for Last 24 Hours 01/22/21 01/23/21 01/24/21 23:59 23:59 23:59 Intake Total 1554.92 / 1674.92 1470 / 1470 Balance 1554.92 / 1674.92 1470 / 1470 General: Alert, Oriented x3, Cooperative, No apparent distress, Well developed, Well nourished HEENT: Atraumatic, Normocephalic Oral: Moist Mucosa Neck: Supple, Trachea Midline Lungs: Clear to auscultation, Normal air movement, No rhonchi, No wheeze, No rales Cardiovascular: Regular rate, Regular Rhythm, Normal S1, Normal S2, No murmurs, No Ectopic Activity, No rub noted, No Gallop Abdomen: Bowel Sounds Present, Soft, Non Tender, Non-Distended Extremities: No clubbing, No cyanosis, No edema, Capillary Refill Less than 3 Seconds, Peripheral Pulses Normal Neurological: Cranial nerves II-XII grossly intact, Neuro grossly intact Psych/Mental Status: Normal Affect, Appropriate Microbiology Past 72 Hours 01/22/21 04:06 Urine, Clean Catch Urine Culture - Final Presumptive E. coli Laboratory Results 01/21/21 21:00: Hepatitis A IgM Ab Negative, Hepatitis A Ab Total Negative, Hep Bs Antigen Negative, Hep B Core Total Ab Negative, Hep B Core IgM Ab Negative, Hepatitis C Ab Confirm <0.1, Hep C Confirm Com 1 Comment 01/23/21 13:40: Hepatitis C Antibody Non-Reactive Current Medications Acetaminophen (Acetaminophen 500 Mg Tablet) 500 mg PO Q4H PRN PRN PRN Reason: Temp > 100.4 F Al Hydroxide/Mg Hydroxide (Mag Hydrox/Al Hydrox/Simeth 30 Ml Udc) 30 ml PO Q6H PRN PRN PRN Reason: dyspesia Albuterol Sulfate (Albuterol 2.5 Mg/3 Ml Vial.Neb.) 2.5 mg INHALATION Q2H PRN PRN PRN Reason: Dyspnea, wheezing Bisacodyl (Bisacodyl 10 Mg Suppository) 10 mg RC DAILY PRN PRN Reason: Constipation Buprenorphine HCl (Buprenorphine Hcl 2 Mg Tab.Subl) 2 mg SL Q12H JI; Taper Stop: 01/24/21 23:29 Last Admin: 01/24/21 10:19 Dose: 2 mg Documented by: Clonidine (Clonidine Hcl 0.1 Mg Tablet) 0.1 mg PO Q8H PRN PRN PRN Reason: RESTLESSNESS Dicyclomine HCl (Dicyclomine 10 Mg Capsule) 20 mg PO Q6H PRN PRN PRN Reason: Abdominal Discomfort Last Admin: 01/22/21 14:52 Dose: 20 mg Documented by: Gabapentin (Gabapentin 300 Mg Capsule) 300 mg PO Q8H PRN PRN PRN Reason: moderate to severe anxiety Last Admin: 01/22/21 17:06 Dose: 300 mg Documented by: Hydroxyzine Pamoate (Hydroxyzine Melissa 25 Mg Capsule) 50 mg PO Q6H PRN PRN PRN Reason: mild anxiety Last Admin: 01/22/21 10:50 Dose: 50 mg Documented by: Sodium Chloride () 250 mls @ 15 mls/hr IV .[id number] PRN PRN Reason: Saline Flush Last Infusion: 01/23/21 12:34 Dose: Infused Documented by: Sodium Chloride () 250 mls @ 15 mls/hr IV .[id number] PRN PRN Reason: Additional IVPB Infusion Ceftriaxone Sodium (Rocephin) 1 gm in 50 mls @ 100 mls/hr IV Q24 JI Last Admin: 01/24/21 10:06 Dose: 100 mls/hr Documented by: Ibuprofen (Ibuprofen 600 Mg Tablet) 600 mg PO Q8H PRN PRN PRN Reason: PAIN Last Admin: 01/21/21 23:43 Dose: 600 mg Documented by: Loperamide HCl (Loperamide 2 Mg Capsule) 2 mg PO Q4H PRN PRN PRN Reason: LOOSE STOOLS Methocarbamol (Methocarbamol 750 Mg Tablet) 1,500 mg PO Q6H PRN PRN PRN Reason: MUSCLE SPASM Nicotine (Nicotine 21 Mg Patch) 21 mg TD DAILY JI Last Admin: 01/24/21 10:19 Dose: 21 mg Documented by: Nutritional Formula (Lactose Free) (Ensure Enlive 120 Ml Liquid) 120 ml PO 4X/DAY JI Last Admin: 01/24/21 10:19 Dose: 120 ml Documented by: Ondansetron HCl (Ondansetron 8 Mg Tablet) 8 mg PO Q8H PRN PRN PRN Reason: NAUSEA Senna (Senna Tablet) 2 tablet PO QHS PRN PRN Reason: Constipation Last Admin: 01/24/21 10:25 Dose: 2 tablet Documented by: Sodium Chloride (0.9% Saline Lock 10 Ml Syringe) 10 - 40 ml IV UD PRN PRN Reason: SALINE FLUSH Last Admin: 01/24/21 10:06 Dose: 10 ml Documented by: Trazodone HCl (Trazodone 100 Mg Tablet) 100 mg PO QHS PRN PRN PRN Reason: INSOMNIA Last Admin: 01/23/21 23:20 Dose: 100 mg Documented by: STROKE Vital Signs/Narrative: Vital Signs Temp Pulse Resp BP Pulse Ox 01/24/21 10:03 97.8 F 69 14 103/62 100 01/24/21 08:10 100 Medical Necessity - Tobacco Use Smoking Status: Current every day smoker Tobacco Use: Cigarettes Assessment/Plan All Active Problems (Last Reviewed 01/21/21 @ 21:24 by Jacqueline Espinoza, EXCEL SPECIALIST-C) Desire for detoxification (Acute) Dermatitis (Acute) Cellulitis (Acute) Corneal abrasion, right (Acute) Acute bacterial conjunctivitis (Acute) Loss of consciousness (Acute) Acute opiate withdrawal -Patient had been reportedly clean for 2 years and relapsed approximately a year ago initially with Percocet and then progressed to fentanyl and heroin in July 2020 -continue Suboxone taper--> now on 2 mg every 12 hours -Continue supportive medications -Patient indicates she is never used IV drugs -180 evaluated the patient and the plan is for discharge on Tuesday a.m. and follow-up for Vivitrol on Tuesday a.m. -Tox screen was only positive for THC -Hepatitis studies are all negative -HIV is nonreactive E. coli acute cystitis/UTI -Organism is sensitive to ceftriaxone -Day 2 of 3 for antibiotics Polysubstance abuse -Patient has history of prior alcohol abuse-currently sober 2017 -Hepatitis status pending -HIV was nonreactive Tobacco abuse -Recommend cessation -Currently using 1 pack/day -Nicotine patch is available Bipolar disorder -Untreated at the present time -Patient is interested in restarting medications and counseling DVT prophylaxis -Early ambulation -Low risk Status -Full code Inpatient E&M: 99045 Subs Hosp L2
[2021-01-24 15:36] VITALS: BP 103/65; PULSE 78; RESP 14; TEMP 36.8; O2SAT 100
[2021-01-24 20:13] VITALS: BP 107/63; PULSE 100; RESP 18; TEMP 36.5; O2SAT 99
[2021-01-24] MEDS: traZODone 100 MG Tablet PO (20:16)
[2021-01-24] MEDS: hydrOXYzine PAM 25 MG Capsule 50 MG PO (20:16)
[2021-01-24] MEDS: Dicyclomine 10 MG Capsule 20 MG PO (20:19)
[2021-01-25 04:05] VITALS: BP 98/57; PULSE 74; RESP 16; TEMP 36.5; O2SAT 96
[2021-01-25 10:00] VITALS: BP 101/70; PULSE 104; RESP 16; TEMP 36.6; O2SAT 100
--- NOTE | 2021-01-25 10:25 | DCINST_ITS ---
- Discharge Diagnoses Current Active Problems: Current Active and Chronic Problems (Last Reviewed 01/21/21 @ 21:24 by Jacqueline Espinoza, RADHA-C) Desire for detoxification (Acute) Tobacco abuse (Chronic) Polysubstance abuse (Chronic) Depression (Chronic) Bipolar 2 disorder (Chronic) PTSD (post-traumatic stress disorder) (Chronic) You will use the following diet at home:: No restrictions Your food should be the consistency of: Regular Your liquids should be the consistency of: Regular/Thin Allergies/Adverse Reactions: Allergies sulfate Allergy (Intermediate, Uncoded 01/21/21 19:38) Rash Medications to take at Discharge Ibuprofen 200 mg PO Q6H PRN PRN 01/21/21 Primary Care Physician: Jose Francisco Reyes NP, MEDICAL OFFICE SPECIALIST-C [Primary Care Provider] - Please follow up with your Primary Care Physician in: as needed Test Results: Test results from this visit will be discussed in further detail at your follow- up appointment, if applicable. Please Follow Up With: [facility] When: tomorrow as directed
--- NOTE | 2021-01-25 10:26 | DS.PCM_ITS ---
Discharge Date and Diagnosis - Problem List Patient Problems: Active and Suspected Problems (Last Reviewed 01/21/21 @ 21:24 by YASEMIN Fall) Desire for detoxification (Acute) Date of Admission: 01/21/21 Date of Discharge: 01/25/21 - Primary Discharge Diagnosis Acute Problems: Active Problems (Last Reviewed 01/21/21 @ 21:24 by YASEMIN Fall) Desire for detoxification (Acute) - Secondary Discharge Diagnosis Chronic Problems: Chronic Problems (Last Reviewed 01/21/21 @ 21:24 by YASEMIN Fall) Tobacco abuse (Chronic) Polysubstance abuse (Chronic) Depression (Chronic) Bipolar 2 disorder (Chronic) PTSD (post-traumatic stress disorder) (Chronic) Hearing problem (Chronic) H/O emotional problems (Chronic) Drug abuse (Chronic) Seasonal allergies (Chronic) Alcohol abuse (Chronic) Abnormal bruising (Chronic) Migraines (Chronic) SOB (shortness of breath) (Chronic) Hospital Course and Treatment Imaging Results: None Addiction medicine Operations: None Procedures: None Summary of Care Provided: Michaelle Ferrera is a 30 year old WF with a past medical history of migraines, allergic rhinitis, tobacco abuse, bipolar disorder, and PTSD who presented to the emergency department at [facility] on 01/21/2021 with a jamey jaime for opiate detoxification. The patient reports she went through detox and rehab and had been sober for 2 years but began using again approximately 1 year ago. She admits to using heroin and other opiates as well as methamphetamines and marijuana. She had been using up to 4 g of heroin a day but denies any IV drug use and states she snorts. Upon admission her last dose of narcotics was at 5 PM on that day. Upon presentation she complained abdominal pain/cramping, generalized body aches and pains, rhinorrhea, fatigue, restlessness, diaphoresis, and agitation. She had been living with her boyfriend who is a substance user and notes the intent of being discharged to her parents house until tomorrow morning when she can be followed up to start her Vivitrol. She indicated on admission that she intended to cut off the relationship with her boyfriend. She was detoxed with a Suboxone taper and did extremely well. She was seen by 180 and they were able to get her into a Vivitrol group on 01/26/2021 at 10 AM. The patient admits that she is aware she needs to be there at 915 for intake. She is also aware that if he does not get to that group it will be another 2 weeks till she can get into another group. She was discharged in stable condition on 01/25/2021 in the care of her mother and will follow up tomorrow morning as indicated. She was also noted to have a urinary tract i nfection for which she was treated with ceftriaxone and completed 3 days of antibiotics course prior to discharge. Hepatitis studies were performed and all were negative. Her HIV antibody was nonreactive. Discharge diagnoses Acute opiate withdrawal E. coli acute cystitis Polysubstance abuse Tobacco abuse Bipolar disorder Discharge time greater than 35 minutes Patient Problems: Active and Suspected Problems (Last Reviewed 01/21/21 @ 21:24 by Jacqueline Espinoza NP-C) Desire for detoxification (Acute) Subjective: Patient states she is feeling well and is anxious to go home. She states she is going to live at her parents house and so she can get her follow-up and go through her recovery. She again states she is aware that she needs to follow-up tomorrow or it will be another 2 weeks before she can get into another Vivitrol program and her chance for relapse is high. She will call her mother to pick her up. - Physical Exam Vitals/I&O's: Vital Signs Temp Pulse Resp BP Pulse Ox 97.8 F 104 H 16 101/70 100 01/25/21 10:00 01/25/21 10:00 01/25/21 10:00 01/25/21 10:00 01/25/21 10:00 Oxygen Delivery Method Room Air Weight: 54.5 kg Body Mass Index (BMI) 21.2 Intake and Output for Last 24 Hours 01/23/21 01/24/21 01/25/21 23:59 23:59 23:59 Intake Total 1470 / 1470 2049 Balance 1470 / 1470 2049 General: Alert, Oriented x3, Cooperative, No apparent distress, Well developed, Well nourished HEENT: Atraumatic, PERRLA, EOMI, Normocephalic, EAC Clear Oral: Moist Mucosa, No Gingival or Mucosal Lesions/ Ulcerations, - - Mallampati 2, no thrush Neck: Supple, No Nodes, Trachea Midline, Thyroid Normal Size and Texture Lungs: Clear to auscultation, Normal air movement, No rhonchi, No wheeze, No rales Cardiovascular: Regular rate, Regular Rhythm, Normal S1, Normal S2, No murmurs, No Ectopic Activity, No rub noted, No Gallop Abdomen: Bowel Sounds Present, Soft, Non Tender, Non-Distended Extremities: No clubbing, No cyanosis, No edema, Capillary Refill Less than 3 Seconds, Peripheral Pulses Normal Skin: No rashes, No breakdown Musculoskeletal: No Tenderness to Palpation of Joints or Extremities, No Muscle Wasting Lymphatic: No Cervical, Supraclavicular, or Inguinal Adenopathy Neurological: Cranial nerves II-XII grossly intact, Neuro grossly intact, Muscle tone normal, Sensory exam intact to light touch and pain, Coordination normal Psych/Mental Status: Normal Affect, Appropriate Microbiology Past 72 Hours 01/22/21 04:06 Urine, Clean Catch Urine Culture - Final Presumptive E. coli Current Medications Acetaminophen (Acetaminophen 500 Mg Tablet) 500 mg PO Q4H PRN PRN PRN Reason: Temp > 100.4 F Al Hydroxide/Mg Hydroxide (Mag Hydrox/Al Hydrox/Simeth 30 Ml Udc) 30 ml PO Q6H PRN PRN PRN Reason: dyspesia Albuterol Sulfate (Albuterol 2.5 Mg/3 Ml Vial.Neb.) 2.5 mg INHALATION Q2H PRN PRN PRN Reason: Dyspnea, wheezing Bisacodyl (Bisacodyl 10 Mg Suppository) 10 mg RC DAILY PRN PRN Reason: Constipation Clonidine (Clonidine Hcl 0.1 Mg Tablet) 0.1 mg PO Q8H PRN PRN PRN Reason: RESTLESSNESS Dicyclomine HCl (Dicyclomine 10 Mg Capsule) 20 mg PO Q6H PRN PRN PRN Reason: Abdominal Discomfort Last Admin: 01/24/21 20:19 Dose: 20 mg Documented by: Gabapentin (Gabapentin 300 Mg Capsule) 300 mg PO Q8H PRN PRN PRN Reason: moderate to severe anxiety Last Admin: 01/22/21 17:06 Dose: 300 mg Documented by: Hydroxyzine Pamoate (Hydroxyzine Melissa 25 Mg Capsule) 50 mg PO Q6H PRN PRN PRN Reason: mild anxiety Last Admin: 01/24/21 20:16 Dose: 50 mg Documented by: Sodium Chloride () 250 mls @ 15 mls/hr IV .[id number] PRN PRN Reason: Saline Flush Last Infusion: 01/23/21 12:34 Dose: Infused Documented by: Sodium Chloride () 250 mls @ 15 mls/hr IV .[id number] PRN PRN Reason: Additional IVPB Infusion Ceftriaxone Sodium (Rocephin) 1 gm in 50 mls @ 100 mls/hr IV Q24 JI Last Infusion: 01/24/21 10:36 Dose: Infused Documented by: Ibuprofen (Ibuprofen 600 Mg Tablet) 600 mg PO Q8H PRN PRN PRN Reason: PAIN Last Admin: 01/21/21 23:43 Dose: 600 mg Documented by: Loperamide HCl (Loperamide 2 Mg Capsule) 2 mg PO Q4H PRN PRN PRN Reason: LOOSE STOOLS Methocarbamol (Methocarbamol 750 Mg Tablet) 1,500 mg PO Q6H PRN PRN PRN Reason: MUSCLE SPASM Nicotine (Nicotine 21 Mg Patch) 21 mg TD DAILY [facility] Last Admin: 01/24/21 10:19 Dose: 21 mg Documented by: Nutritional Formula (Lactose Free) (Ensure Enlive 120 Ml Liquid) 120 ml PO 4X/DAY [facility] Last Admin: 01/25/21 10:17 Dose: 120 ml Documented by: Ondansetron HCl (Ondansetron 8 Mg Tablet) 8 mg PO Q8H PRN PRN PRN Reason: NAUSEA Senna (Senna Tablet) 2 tablet PO QHS PRN PRN Reason: Constipation Last Admin: 01/24/21 10:25 Dose: 2 tablet Documented by: Sodium Chloride (0.9% Saline Lock 10 Ml Syringe) 10 - 40 ml IV UD PRN PRN Reason: SALINE FLUSH Last Admin: 01/24/21 10:06 Dose: 10 ml Documented by: Trazodone HCl (Trazodone 100 Mg Tablet) 100 mg PO QHS PRN PRN PRN Reason: INSOMNIA Last Admin: 01/24/21 20:16 Dose: 100 mg Documented by: Home Medications: Medications to take at Discharge Ibuprofen 200 mg PO Q6H PRN PRN 01/21/21 Primary Care Physician: Jose Francisco Reyes SUPERVISOR FLOOR ASSEMBLY, SUPERVISOR FLOOR ASSEMBLY-C [Primary Care Provider] - Please follow up with your Primary Care Physician in: as needed Please Follow Up With: [facility] When: tomorrow as directed Medical Necessity - Tobacco Use Smoking Status: Current every day smoker Tobacco Use: Cigarettes Meaningful Use Info Meaningful Use Diagnoses (Choose all that apply): None applicable Inpatient E&M: 13902 Disch Hosp
== END 2021-01-25 10:45 | disposition home or self-care (01) | DRG 773 ==
LOC: ED 21:24 → PCU 21:27
PROVIDERS: Admitting Provider Family Medicine; Emergency Provider Emergency Medicine; PCP Nurse Practitioner Family; Visit Provider Internal Medicine
DX: F11.23 Opioid dependence with withdrawal (principal); F10.11 Alcohol abuse, in remission; F31.81 Bipolar II disorder; F15.10 Other stimulant abuse, uncomplicated; B96.20 Unspecified Escherichia coli [E. coli] as the cause of diseases classified elsewhere; N30.00 Acute cystitis without hematuria; F17.210 Nicotine dependence, cigarettes, uncomplicated; F12.10 Cannabis abuse, uncomplicated; Z23 Encounter for immunization; F43.12 Post-traumatic stress disorder, chronic; Z79.899 Other long term (current) drug therapy; Z68.21 Body mass index [BMI] 21.0-21.9, adult
CPT/HCPCS: 80053; 80307; 80320; 81001; 84703; 85025; 86703; 86704; 86705; 86706; 86708; 86709; 86803; 87086; 87088; 87186; 87340; 97802; 99284; 99406; J7030; J7050; J7120; 90686; A4216; G0480; J2405

== ENCOUNTER → 2021-03-06 09:48 | Outpatient (CLI) | payer MEDICAID, SELFPAY ==
[2021-03-06 08:45] VITALS: BMI 21.2
[2021-03-06 12:45] LABS: HIV - WCH Non-Reactive (Nonreactive)
[2021-03-06 14:10] LABS: Chlamydia Trachomatis by PCR Negative (Negative); Neisserai gonorrhoeae by PCR Negative (Negative); Probe Check PASS; Sample Adequacy Control PASS; Specimen Processing Control PASS
[2021-03-07 08:09] LABS: HEPATITIS B SURFACE AG Negative (Negative); Hepatitis A IgM Antibody Negative (Negative); Hepatitis B Core AB IgM Negative (Negative)
[2021-03-07 10:54] LABS: Hep C Antibodies <0.1 s/co ratio (0.0-0.9)
== END ==
PROVIDERS: PCP Nurse Practitioner Family; Referring Provider Physician Assistant; Visit Provider Physician Assistant
DX: Z11.3 Encounter for screening for infections with a predominantly sexual mode of transmission (principal)
CPT/HCPCS: 36415; 80074; 86703; 87491; 87591

== ENCOUNTER → 2021-03-26 14:06 | Outpatient (CLI) | payer MEDICAID, SELFPAY ==
[2021-03-06 08:45] VITALS: BMI 21.2
--- NOTE | 2021-03-26 14:50 | RAD_ITS ---
STUDY: X-RAY CHEST REASON FOR EXAM: Female, 31 years old. SOB TECHNIQUE: Frontal and lateral views of the chest. COMPARISON: 04/06/2018 FINDINGS: There is no new focal consolidation. Normal size heart. Normal mediastinum and adi. Normal visualized pulmonary arteries. Normal visualized aortic arch and descending thoracic aorta. Normal visualized thoracic spine. Normal visualized ribs, clavicles, and shoulders. There is no demonstrated abnormality of the visualized soft tissue structures of the upper abdomen. RAD/Chest PA and Lateral IMPRESSION: No acute cardiopulmonary process. Electronically Signed: Peace Beckham MD at 16:48 EDT Tel , Service support ,
== END ==
PROVIDERS: PCP Nurse Practitioner Family; Referring Provider Physician Assistant; Visit Provider Physician Assistant
DX: R06.02 Shortness of breath (principal); Z72.0 Tobacco use
CPT/HCPCS: 71046

== ENCOUNTER 2021-05-14 20:38 | Emergency (ER) | payer MEDICAID, SELFPAY ==
[2021-03-06 08:45] VITALS: BMI 21.2
[2021-05-14 20:39] VITALS: BP 113/72; PULSE 70; RESP 15; TEMP 36.8; O2SAT 98; BMI 27.5
--- NOTE | 2021-05-14 21:48 | EDS_ITS ---
HPI History of Present Illness Chief Complaint: Allergic Reaction Detail of Chief Complaint: Left leg swelling and concern for DVT Informant: patient Narrative Narrative: Patient presents to the emergency department with left leg swelling that started today. Patient states that she was at work and had a brace on her left ankle and noted that her foot and ankle were quite swollen. She denies any trauma. Patient states that she recently increased her Seroquel to 200 mg and one of the possible side effects would be blood clots. She denies any chest pain or shortness of breath. No history of PE or DVT. She is not on oral contraceptive. Prior similar symptoms: No PFSH [facility] Medical History (Updated 05/14/21 @ 22:[address] Angeles Valencia, ) Abnormal bruising Alcohol abuse Drug abuse H/O emotional problems Hearing problem Loss of consciousness Migraines Seasonal allergies SOB (shortness of breath) Home Medications albuterol sulfate 90 mcg/actuation aerosol inhaler 2 puff INHALATION Q6H PRN #8.5 g 03/06/21 [Rx Last Taken Unknown] gabapentin 100 mg capsule 100 mg PO DAILY #30 cap 03/06/21 [Rx Last Taken Unknown] [id number] carb-vit K 18 mg iron-400 mcg-500 mg tablet 1 tab PO DAILY #90 tab 04/24/21 [Rx Last Taken Unknown] buspirone [BuSpar] 75 mg PO BID 05/14/21 [History Last Taken Unknown] lurasidone [Latuda] 60 mg PO DAILY 05/14/21 [History Last Taken Unknown] naltrexone microspheres [Vivitrol] 380 mg IM QMONTH 05/14/21 [History Last Taken Unknown] quetiapine [Seroquel] 200 mg PO DAILY 05/14/21 [History Last Taken Unknown] Allergy/AdvReac Type Severity Reaction Status Date / Time sulfate Allergy Intermediate Rash Uncoded 05/14/21 20:39 Family History (Updated 03/06/21 @ 08:44 by Mone Jalloh) Mother Anxiety Depressed Arthritis Cancer Son Anxiety Father Anxiety Cancer Sister Depressed Surgical History History of tubal ligation History of wisdom tooth extraction Hx of section Social History (Updated 03/06/21 @ 08:42 by Mone Jalloh) Smoking Status: Current every day smoker tobacco type: cigarettes Tobacco: How many years used: 20 alcohol intake: former year quit: 2018 substance use type: former substance user 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, heroin and other details: Clean since 02/23/18 what type of physical activity do you participate in: yoga and weight training frequency: 3-4 times per week ROS ROS ED Constitutional Constitutional ED: Reports systems reviewed and no addt'l complaints, except as documented; Denies body ache(s), change in weight or chills Eyes Eyes: Denies acute decrease in peripheral vision, change in vision, double vision or loss of vision ENT ENT ED: Reports none; Denies ear pain, lip swelling, loss taste/smell, neck pain, otalgia or sore throat Cardiovascular Cardiovascular: Reports none; Denies abdominal pain, chest pain with activity, leg edema, lightheadedness, palpitations, rapid heart rate or syncope Respiratory/Chest Respiratory/Chest: Reports none; Denies change in mental status, dry cough, dyspnea, hemoptysis, shortness of breath at rest or shortness of breath with exertion Gastrointestinal Gastrointestinal: Reports none; Denies abdominal pain, change in stool character, diarrhea, hematemesis, hematochezia, melena, rectal bleeding or vomiting Genitourinary Genitourinary ED: Reports none; Denies abdominal discomfort, anuria, dysuria, genital pain or polyuria Musculoskeletal Musculoskeletal: Reports none and other Details: Left leg swelling ; Denies arthralgias, back pain, difficulty walking, extremity pain, muscle weakness or myalgias Integumentary Reports none; Denies abscess or rash Neurologic Neurologic: Reports none; Denies abnormal gait, confusion, focal weakness, f requent falls, headache(s), loss of vision, numbness, paresthesias, radicular pain, vertigo or weakness Psychiatric Psychiatric: Reports systems reviewed and no addt'l complaints, except as documented and none; Denies behavioral changes, confusion, difficulty concentrating, hallucinations, suicidal ideation, tactile hallucinations or visual hallucinations Endocrine Endocrinology: Denies none, cold intolerance, excessive sweating, fatigue or heat intolerance Hematologic/Lymphatic Hematologic/Lymphatic: Reports none; Denies anemia, easy bleeding or easy bruising Allergic/Immunologic Allergic/Immunologic ED: Denies as per HPI, none, lip swelling, mouth swelling, throat swelling, tongue swelling or hives EXAM Physical Exam Const Vital Signs: 07/15/21 20:39 Temperature 98.2 F Temperature Source Temporal Pulse Rate 70 Respiratory Rate 15 Blood Pressure 113/72 Blood Pressure Mean 85 Pulse Ox 98 Oxygen Delivery Method Room Air Positive well nourished and well developed General Appearance ED: well developed and NAD HEENT Reports TM's clear and moist mucous membranes normocephalic and atraumatic; Negative for trauma or tenderness Tympanic Membrane ED: Yes TM's clear Eyes PERRL and EOMs intact bilaterally General Eye ED: Negative for pale conjunctiva or scleral icterus Neck no lymphadenopathy, supple and no JVD General: Negative for tenderness Chest Wall inspection of chest normal and palpation of chest normal Chest: Negative for tenderness Resp normal respiratory effort and clear to auscultation bilaterally Effort and Inspection: Negative for respiratory distress or pain with movement Auscultation: Negative for rhonchi, wheezes or diminished lung sounds Cardio regular rate, regular rhythm, S1 normal heart sound, S2 normal heart sound and no murmurs Peripheral Pulses: pulses 2+ throughout GI normal to inspection, nondistended, normoactive bowel sounds, soft to palpation, non-tender, non-distended and no masses Back/Spine no CVA tenderness and no thoracic nor lumbar tenderness Extremity normal to inspection Extremity Narrative: Evaluation of the left leg reveals minimal edema around the ankle. Negative Homans' sign. No erythema or cellulitic changes noted. General Extremety ED: Negative for edema General Extremity: Negative for edema Neuro oriented x3, CN's II-XII intact bilaterally, no sensory deficits noted and gait normal Sensorium / Orientation: awake, alert, oriented to person, oriented to place and oriented to time Motor Exam: strength 5/5 throughout and strength abnormal Psych mental status grossly normal Skin no rashes or lesions noted and no wounds MDM MDM MDM Narrative Medical decision making narrative: Patient's venous duplex was negative for DVT. At this point I recommend that she continue with her current dose of Seroquel. I suspect patient likely had edema related to her ankle brace. Radiography Diagnostic Testing: Radiology Impression Venous Duplex 05/14/21 21:51 Discharge Plan Triage Chief Complaint: Allergic Reaction ED Provider: Angeles Valencia Dx/Rx/DC Orders Clinical Impression: Leg edema Instructions: ED Peripheral Edema, Unilateral Prescriptions: No Action albuterol sulfate [ProAir HFA] 90 mcg/actuation HFA aerosol inhaler 2 puff inhalation Q6H PRN (Reason: shortness of breath or wheezing) Qty: 8.5 RF: 2 gabapentin 100 mg capsule 100 mg PO DAILY Qty: 30 RF: 2 quetiapine [Seroquel] 200 mg Tablet 200 mg PO DAILY RF: 0 buspirone [BuSpar] 15 mg Tablet 75 mg PO BID RF: 0 Vivitrol 380 mg Suspension,Extended Rel Recon 380 mg IM QMONTH RF: 0 Latuda 60 mg Tablet 60 mg PO DAILY RF: 0 Women's Multivitamin 18 mg iron-400 mcg-500 mg tablet 1 tab PO DAILY Qty: 90 RF: 3 Primary Care Provider: Jigna Burks Referrals: Jigna Burks PA [Primary Care Provider] - 3-5 Days Disposition Disposition: Home, Self Care
--- NOTE | 2021-05-14 21:51 | US_ITS ---
STUDY: VENOUS DOPPLER ULTRASOUND - LEFT LOWER EXTREMITY REASON FOR EXAM: Female, 31 years old. LT FOOT SWELLING TECHNIQUE: Ultrasound evaluation of the deep vein system to include doherty-scale imaging and compression was performed. Doherty-scale imaging and Doppler sonographic evaluation, including duplex spectral analysis and qualitative color flow sonography, was performed. COMPARISON: None. FINDINGS: Common Femoral Vein: Normal compression, spontaneity and augmentation. Normal color Doppler. Common Femoral Vein/Greater Saphenous Junction: Normal compression, spontaneity and augmentation. Normal color Doppler. Deep Femoral Vein: Normal compression, spontaneity and augmentation. Normal color Doppler. Femoral Proximal: Normal compression, spontaneity and augmentation. Normal color Doppler. Femoral Middle: Normal compression, spontaneity and augmentation. Normal color Doppler. Femoral Distal: Normal compression, spontaneity and augmentation. Normal color Doppler. Popliteal Vein: Normal compression, spontaneity and augmentation. Normal color Doppler. Posterior Tibial Vein: Normal compression, spontaneity and augmentation. Normal color Doppler. Peroneal Vein: Normal compression, spontaneity and augmentation. Normal color Doppler. Subcutaneous fluid left foot. IMPRESSION: Subcutaneous fluid left foot. No DVT. Electronically Signed: Buster Bosch MD at 22:50 EDT , Service support , US/Venous Duplex Imag/Limited/Uni
== END 2021-05-14 23:04 | disposition home or self-care (01) ==
PROVIDERS: Emergency Provider Emergency Medicine; PCP Physician Assistant
DX: R60.0 Localized edema (principal); F17.210 Nicotine dependence, cigarettes, uncomplicated; Z79.899 Other long term (current) drug therapy
CPT/HCPCS: 93971; 99282